=== PATIENT | male | born 1965 | race Caucasian/White ===

== ENCOUNTER 2019-03-22 12:07 | Inpatient (IN) | payer OTHER ==
[2019-03-22 15:14] VITALS: BMI 20.9
--- NOTE | 2019-03-22 16:58 | HP ---
"COWS - Scale Resting Pulse: 0= [place] 80 or Below Sweatin=Flushed/Facial Moisture Restless Observation: 3= Extraneous Movement Pupil Size: 1= Pupils >than Normal (Pupils = 3 mm) Bone or Joint Aches: 1= Mild Discomfort Runny Nose/ Eye Tearin= Runny Nose/Eyes GI Upset > 30mins: 0= None Tremor Observation: 2= Slight Tremor Visible Yawning Observation: 0= None Anxiety or Irritability: 1=Feels Anxious/Irritable Goose Flesh Skin: 0=Smooth Skin COWS Score: 12 CIWA Score - Admission Criteria OASAS Guidelines: Admission for Medically Managed Detox: Requires at least one of the followin. CIWA greater than 12 2. Seizures within the past 24 hours 3. Delirium tremens within the past 24 hours 4. Hallucinations within the past 24 hours 5. Acute intervention needed for co occurring medical disorder 6. Acute intervention needed for co occurring psychiatric disorder 7. Severe withdrawal that cannot be handled at a lower level of care (continued vomiting, continued diarrhea, abnormal vital signs) requiring intravenous medication and/or fluids 8. Admission [facility] Chief Complaint: I'm having heroin withdrawal. I need detox. Allergies/Adverse Reactions: Allergies Allergy/AdvReac Type Severity Reaction Status Date / Time No Known Allergies Allergy Verified 03/22/19 15:06 History of Present Illness: 53 yo presents w/opioid withdrawal seeking detox. Has had multiple detoxes in other facilities - never completed. Heroin use began at age 35. Currently increased to 15 bags x 5 months - [place]. States last used at 9 am. Does not have a Narcan kit. States methadone is from treatment attempt @ [facility] on 03/21/19. Denies being on a MMTP. Nicotine use began at age 10. Smokes 1/2 PPD. Denies alcohol or beer use. Denies seizures, blackouts or overdoses. Longest length of sobriety 1 year - 2018. PMHx: Asthma (Last exacerbation over 1 year ago); Occ streaks of blood; Gastric Ulcer: Kidney infection 1 month ago. MHHx: Aniety; Bipolar: Depression. Not on MH meds. Does not see a MH Provider. Denies thoughts of harming self or others. SHx: Lives in a detention. Unemployed. Search Terms: Rogelio Calloway, 1965 Search Date: 03/22/2019 04:52:58 PM The Drug Utilization Report below displays all of the controlled substance prescriptions, if any, that your patient has filled in the last twelve months. The information displayed on this report is compiled from pharmacy submissions to the Department, and accurately reflects the information as submitted by the pharmacies. This report was requested by: Lauren Garcia | Reference #: [id number] There are no results for the search terms that you entered. Search Terms: Rogelio Calloway, 1965 Search Date: 03/22/2019 04:53:22 PM States Searched: [place], [place], [place], [place], [place], [place], [place] The Drug Utilization Report below displays the controlled substance prescriptions, if any, that were dispensed in the indicated state(s). The information displayed on this report is compiled from requests submitted to other states' PMPs, and accurately reflects the information as returned by them. Blank padilla indicate data not provided by other state. This report was requested by: Laurne Garcia | Reference #: [id number] Exam Limitations: No Limitations - Ebola screening Have you traveled outside of the country in the last 21 days: No (N) Have you had contact with anyone from an Ebola affected area: No Have you been sick,other than usual withdrawal symptoms: No (Denies recent exposure to measles) Do you have a fever: No - Review of Systems Constitutional: No Symptoms Reported EENT: reports: Blurred Vision, Dental Problems (Dentures. Missing fillings. Chews and swallows ok.) Respiratory: reports: SOB with Exertion Cardiac: reports: No Symptoms Reported GI: reports: Blood Streaked Bowels, Nausea : reports: No Symptoms Reported Musculoskeletal: reports: Back Pain (LBP r/t withdrawal), Joint Pain ((R) hip gives out - uses a cane) Integumentary: reports: Other (Occ boils under armpits) Neuro: reports: Numbness (Toes both feet.) Endocrine: reports: No Symptoms Reported Hematology: reports: No Symptoms Reported Psychiatric: reports: Judgement Intact, Orientated x3, Agitated, Anxious, Depressed (Denies thoughts of harming self or others) Patient History - PPD History Previous Implant?: Yes (Will order TB Gold test) Documented Results: Negative w/o proof Implanted On Prior [facility] Admission?: Yes PPD to be Administered?: No - Smoking Cessation Smoking history: Current every day smoker Have you smoked in the past 12 months: Yes Aproximately how many cigarettes per day: 10 Hx Chewing Tobacco Use: No Initiated information on smoking cessation: Yes 'Breaking Loose' booklet given: 03/22/19 - Substance & Tx. History Hx Alcohol Use: No Hx Substance Use: Yes Substance Use Type: Heroin, Opiates Hx Substance Use Treatment: Yes (multiple detoxes - never completed.) - Substances abused Heroin Substance route: Inhalation Frequency: Daily Amount used: 15 bags Age of first use: 35 Date of last use: 03/22/19 Admission Physical Exam S - Vital Signs Vital Signs: Vital Signs - 24 hr 03/22/19 15:06 Temperature 97.7 F Pulse Rate 65 Respiratory 16 Rate Blood Pressure 115/78 - Physical General Appearance: Yes: Mild Distress, Thin, Tremorous, Sweating (Increased facial moisture), Anxious HEENTM: Yes: Hearing grossly Normal, Normocephalic, Normal Voice, RICCO (Pupils = 3 mm), Pharynx Normal Respiratory: Yes: Lungs Clear, Normal Breath Sounds, No Respiratory Distress Breast: Yes: Breast Exam Deferred Cardiology: Yes: Regular Rhythm, S1, S2, Bradycardia (HR: 58) Abdominal: Yes: Non Tender, Flat, Soft, Increased Bowel Sounds Genitourinary: Yes: Within Normal Limits Back: Yes: Normal Inspection Musculoskeletal: Yes: full range of Motion, Gait Steady Extremities: Yes: Normal Capillary Refill, Non-Tender, Tremors Neurological: Yes: Fully Oriented, Alert, Motor Strength 5/5, Normal Response Integumentary: Yes: Normal Color, Warm, Diaphoresis (Increased facial moisture) , Other (dry, flaky skin between toes and on bottom of feet.) Lymphatic: Yes: Within Normal Limits - Diagnostic (1) Opioid dependence with withdrawal Current Visit: Yes Status: Acute (2) Nicotine dependence, uncomplicated Current Visit: Yes Status: Chronic Qualifiers: Nicotine product type: cigarettes Qualified Code(s): F17.210 - Nicotine dependence, cigarettes, uncomplicated (3) History of gastric ulcer Current Visit: No Status: Resolved (4) History of asthma Current Visit: No Status: Chronic (5) Left hip pain Current Visit: Yes Status: Chronic (6) Tinea pedis Current Visit: Yes Status: Chronic Qualifiers: Laterality: bilateral Qualified Code(s): B35.3 - Tinea pedis Cleared for Admission [facility] - Detox or Rehab [facility] Level of Care: Medically Managed Detox Regimen/Protocol: Methadone Claeared for Rehab Admission: No Breathalyzer - Breathalyzer Breathalyzer: 0 Urine Drug Screen - Test Device Lot number: [id number] Expiration date: 01/04/21 - Control Is test valid?: Yes - Results Drug screen NEGATIVE: No Urine drug screen results: FEN-Fentanyl, MOP-Opiates, MTD-Methadone Inpatient Rehab Admission - Rehab Decision to Admit Inpatient rehab admission?: No"
[2019-03-22] MEDS ORDERED: NICOTINE POLACRILEX 2 MG GUM BUC PRN (18:11)
[2019-03-22] MEDS ORDERED: ONDANSETRON *ODT* 4 MG TABLET SL PRN (18:11)
[2019-03-22] MEDS ORDERED: MENTHOL/PHENOL 1 EACH UD MM PRN (18:11)
[2019-03-22] MEDS ORDERED: IBUPROFEN 400 MG TABLET (FP) PO PRN (18:11)
[2019-03-22] MEDS ORDERED: MAGNESIUM CITRATE 300 ML BOTTLE PO PRN (18:11)
[2019-03-22] MEDS ORDERED: BISMUTH SUBSALICYLATE 524 MG/30 ML UD PO PRN (18:11)
[2019-03-22] MEDS ORDERED: METHOCARBAMOL 500 MG TABLET PO PRN (18:11)
[2019-03-22] MEDS ORDERED: ACETAMINOPHEN 325 MG TABLET (FP) PO PRN ×2 (18:11)
[2019-03-22] MEDS ORDERED: MAGNESIUM HYDROX 2400MG/30ML ORAL SUSPENSION 30 ML CUP PO PRN (18:11)
[2019-03-22] MEDS ORDERED: MAG HYDROX/AL HYDROX/SIMETH 30 ML UNIT-DOSE CUP PO PRN (18:11)
[2019-03-22] MEDS ORDERED: ALBUTEROL SO4 0.083% IH SOL 2.5 MG/3 ML VIAL.NEB. NEB PRN (18:19)
[2019-03-22] MEDS ORDERED: NALOXONE HCL 0.4 MG/ML VIAL IM PRN (18:33)
[2019-03-22] MEDS: TOLNAFTATE 1% CREAM 15 GM TUBE TP SCH (21:49)
[2019-03-22] MEDS: THIAMINE HCL 100 MG TABLET (FP) PO SCH (21:49)
[2019-03-22] MEDS: MELATONIN 5 MG TABLETS PO PRN (21:49)
[2019-03-22] MEDS ORDERED: METHADONE HCL 10 MG TABLET (FOR DETOX USE ONLY) PO ONE (22:00)
[2019-03-23] MEDS ORDERED: METHADONE HCL 10 MG TABLET (FOR DETOX USE ONLY) ONE (09:14)
[2019-03-23] MEDS ORDERED: METHADONE HCL 5 MG TABLET (FOR DETOX USE ONLY) ONE (09:14)
[2019-03-23] MEDS ORDERED: METHADONE (DETOX) 20 MG, METHADONE (DETOX) 5 MG PO ONE (10:00)
[2019-03-23] MEDS: NICOTINE 14 MG/24 HOURS TOPICAL PATCH TD SCH (10:12)
[2019-03-23] MEDS: RANITIDINE HCL 150 MG TABLET (FP) PO SCH (10:12)
[2019-03-23] MEDS: PRENATAL VITAMINS W/ FOLIC ACID TABLET (FP) PO SCH (10:12)
[2019-03-23] MEDS: TOLNAFTATE 1% CREAM 15 GM TUBE TP SCH ×2 (10:14→21:42)
[2019-03-23 10:48] LABS: HEMATOCRIT 39.7 % (35.4-49); HEMOGLOBIN 13.5 GM/dL (11.7-16.9); MCH 32.7 pg (25.7-33.7); MEAN CELL VOLUME 96.3 fl (80-96); MEAN PLT VOLUME 7.4 fl (7.5-11.1); PLATELET COUNT 297 K/MM3 (134-434); RBC 4.13 M/mm3 (4.00-5.60); RDW 13.8 % (11.9-15.9); WHITE BLOOD COUNT 8.4 K/mm3 (4.0-10.0)
--- NOTE | 2019-03-23 11:06 | PN ---
[facility] COWS - Scale Resting Pulse: 0= [place] 80 or Below Sweatin= Beads of Sweat on Face Restless Observation: 1= Difficult to Sit Still Pupil Size: 0= Normal to Room Light Bone or Joint Aches: 2= Severe Diffuse Aches Runny Nose/ Eye Tearin= None GI Upset > 30mins: 1= Stomach Cramp Tremor Observation of Outstretched Hands: 0= None Yawning Observation: 1= 1-2x During Session Anxiety or Irritability: 2=Irritable/Anxious Goose Flesh Skin: 0=Smooth Skin COWS Score: 10 BHS Progress Note (SOAP) Subjective: c/o sweats, anxiety/irritability, and stomach cramps. Objective: 03/23/19 11:07 Vital Signs 03/23/19 03/23/19 03:30 06:45 Temperature 97.9 F Pulse Rate 60 Respiratory 18 18 Rate Blood Pressure 130/62 Lab Results WBC 8.4 K/mm3 (4.0-10.0) 03/23/19 07:30 RBC 4.13 M/mm3 (4.00-5.60) 03/23/19 07:30 Hgb 13.5 GM/dL (11.7-16.9) 03/23/19 07:30 Hct 39.7 % (35.4-49) 03/23/19 07:30 MCV 96.3 fl (80-96) H 03/23/19 07:30 MCHC 34.0 g/dl (32.0-35.9) 03/23/19 07:30 RDW 13.8 % (11.9-15.9) 03/23/19 07:30 Plt Count 297 K/MM3 (134-434) 03/23/19 07:30 Labs pending. Assessment: 03/23/19 11:08 AOX3, in no acute distress. Full ROM, ambulating in the unit. Withdrawal symptoms. Plan: continue detox.
[2019-03-23 11:12] LABS: BILIRUBIN,TOTAL 0.5 mg/dL (0.2-1); BLOOD UREA NITROGEN 11.4 mg/dL (7-18); CALCIUM 9.2 mg/dL (8.5-10.1); CREATININE 0.7 mg/dL (0.55-1.3); TOT PROT 7.3 g/dl (6.4-8.2)
[2019-03-23] MEDS: PANTOPRAZOLE 40 MG TABLET (FP) PO SCH (19:48)
[2019-03-23] MEDS: MELATONIN 5 MG TABLETS PO PRN (21:42)
[2019-03-23] MEDS: THIAMINE HCL 100 MG TABLET (FP) PO SCH (21:42)
--- NOTE | 2019-03-24 08:12 | PN ---
[facility] Progress Note Note: Patient made verbal threats to staff. Patient was at the nursing station telling another resident to call 911 if the nurse did not alow her to use the telephone to call her house in the morning. Patient was told to go to his room and not stand at the nursing station Patient stated " Don't mess with me, else what happened yesteryears will happen right now''. Paient was unable to explain what he meant. Nursing instructional supervisor, Mr. Garcia and security aware
[2019-03-24] MEDS ORDERED: METHADONE HCL 10 MG TABLET (FOR DETOX USE ONLY) PO ONE (10:00)
[2019-03-24] MEDS: NICOTINE 14 MG/24 HOURS TOPICAL PATCH TD SCH (10:15)
[2019-03-24] MEDS: RANITIDINE HCL 150 MG TABLET (FP) PO SCH (10:16)
[2019-03-24] MEDS: TOLNAFTATE 1% CREAM 15 GM TUBE TP SCH ×2 (10:16→22:09)
[2019-03-24] MEDS: PRENATAL VITAMINS W/ FOLIC ACID TABLET (FP) PO SCH (10:16)
[2019-03-24] MEDS ORDERED: cloNIDine HCL 0.1 MG TABLET PO PRN (11:11)
[2019-03-24] MEDS: diazePAM 5 MG TABLET PO PRN ×3 (11:20→19:49)
--- NOTE | 2019-03-24 11:39 | EKG ---
Test Reason : Blood Pressure : / mmHG Vent. Rate : 046 BPM Atrial Rate : 046 BPM P-R Int : 152 ms QRS Dur : 088 ms QT Int : 466 ms P-R-T Axes : 062 064 077 degrees QTc Int : 407 ms SINUS BRADYCARDIA OTHERWISE NORMAL ECG NO PREVIOUS ECGS AVAILABLE Confirmed by KAMILLE BALDERAS MD ([id number]) on 03/24/2019 11:39:11 AM Referred By: Confirmed By:KAMILLE BALDERAS MD
--- NOTE | 2019-03-24 12:29 | PN ---
[facility] COWS - Scale Resting Pulse: 0= [place] 80 or Below Sweatin=Flushed/Facial Moisture Restless Observation: 1= Difficult to Sit Still Pupil Size: 0= Normal to Room Light Bone or Joint Aches: 2= Severe Diffuse Aches Runny Nose/ Eye Tearin= None GI Upset > 30mins: 0= None Tremor Observation of Outstretched Hands: 2= Slight Tremor Visible Yawning Observation: 1= 1-2x During Session Anxiety or Irritability: 2=Irritable/Anxious Goose Flesh Skin: 0=Smooth Skin COWS Score: 10 B[facility] Progress Note (SOAP) Subjective: irritable anxiety body aches agitation Objective: 03/24/19 12:28 Vital Signs Temperature 98.2 F 03/24/19 09:48 Pulse Rate 69 03/24/19 09:48 Respiratory Rate 18 03/24/19 09:48 Blood Pressure 146/75 03/24/19 09:48 O2 Sat by Pulse Oximetry (%) Laboratory Tests 03/23/19 03/23/19 03/23/19 07:30 07:30 07:30 WBC 8.4 RBC 4.13 Hgb 13.5 Hct 39.7 MCV 96.3 H MCH 32.7 MCHC 34.0 RDW 13.8 Plt Count 297 MPV 7.4 L Sodium 140 Potassium 4.0 Chloride 103 Carbon Dioxide 31 Anion Gap 6 L BUN 11.4 Creatinine 0.7 Est GFR (CKD-EPI)AfAm 124.87 Est GFR (CKD-EPI)NonAf 107.74 Random Glucose 83 Calcium 9.2 Total Bilirubin 0.5 AST 20 ALT 18 Alkaline Phosphatase 60 Total Protein 7.3 Albumin 4.0 RPR Titer Nonreactive labs noted aaox3 ambulating no acute distress Assessment: 03/24/19 12:28 withdrawal sx Plan: continue detox increase fluids valium 10mg prn clonidine 0.1mg prn
[2019-03-24] MEDS: PANTOPRAZOLE 40 MG TABLET (FP) PO SCH (18:15)
[2019-03-24] MEDS: THIAMINE HCL 100 MG TABLET (FP) PO SCH (22:08)
[2019-03-24] MEDS: MELATONIN 5 MG TABLETS PO PRN (22:09)
[2019-03-25] MEDS: diazePAM 5 MG TABLET PO PRN ×3 (07:14→16:15)
[2019-03-25] MEDS ORDERED: METHADONE HCL 10 MG TABLET (FOR DETOX USE ONLY) ONE (09:41)
[2019-03-25] MEDS ORDERED: METHADONE HCL 5 MG TABLET (FOR DETOX USE ONLY) ONE (09:42)
[2019-03-25] MEDS ORDERED: METHADONE (DETOX) 10 MG, METHADONE (DETOX) 5 MG PO ONE (10:00)
[2019-03-25] MEDS: PRENATAL VITAMINS W/ FOLIC ACID TABLET (FP) PO SCH (10:56)
[2019-03-25] MEDS: TOLNAFTATE 1% CREAM 15 GM TUBE TP SCH ×2 (10:56→22:25)
[2019-03-25] MEDS: RANITIDINE HCL 150 MG TABLET (FP) PO SCH (10:56)
[2019-03-25] MEDS: NICOTINE 14 MG/24 HOURS TOPICAL PATCH TD SCH (10:58)
--- NOTE | 2019-03-25 16:25 | PN ---
[facility] COWS - Scale Resting Pulse: 0= [place] 80 or Below Sweatin= No chills or Flushing Restless Observation: 1= Difficult to Sit Still Pupil Size: 0= Normal to Room Light Bone or Joint Aches: 0= None Runny Nose/ Eye Tearin= None GI Upset > 30mins: 0= None Tremor Observation of Outstretched Hands: 0= None Yawning Observation: 1= 1-2x During Session Anxiety or Irritability: 0= None Goose Flesh Skin: 0=Smooth Skin COWS Score: 2 BHS Progress Note (SOAP) Subjective: Patient denies current Withdrawal / Detox symptoms and reports that he feels well overall at this time. Objective: PATIENT A & O X 3, OBSERVED AMBULATING ON UNIT WITH ASSISTANCE OF A CANE. IN NO ACUTE DISTRESS. 03/25/19 17:06 Vital Signs Temperature 97.2 F L 03/25/19 13:25 Pulse Rate 65 03/25/19 13:25 Respiratory Rate 18 03/25/19 13:25 Blood Pressure 117/76 03/25/19 13:25 O2 Sat by Pulse Oximetry (%) Laboratory Tests 03/23/19 03/23/19 03/23/19 07:30 07:30 07:30 WBC 8.4 RBC 4.13 Hgb 13.5 Hct 39.7 MCV 96.3 H MCH 32.7 MCHC 34.0 RDW 13.8 Plt Count 297 MPV 7.4 L Sodium 140 Potassium 4.0 Chloride 103 Carbon Dioxide 31 Anion Gap 6 L BUN 11.4 Creatinine 0.7 Est GFR (CKD-EPI)AfAm 124.87 Est GFR (CKD-EPI)NonAf 107.74 Random Glucose 83 Calcium 9.2 Total Bilirubin 0.5 AST 20 ALT 18 Alkaline Phosphatase 60 Total Protein 7.3 Albumin 4.0 RPR Titer Nonreactive LABS NOTED. RESULTS OF DETOX ADMISSION QFT /TB TEST PENDING. 03/25/19 17:07 Assessment: 03/25/19 17:07 WITHDRAWAL SYMPTOMS. Plan: CONTINUE DETOX. PATIENT DENIES CURRENT WITHDRAWAL/DETOX SYMPTOMS AND REPORTS THAT HE FEELS WELL. AT PATIENT'S REQUEST, CURRENT DETOX MEDICATION REGIMEN MODIFIED SO THAT PATIENT MAY BE DISCHARGED TOMORROW, .
[2019-03-25] MEDS: PANTOPRAZOLE 40 MG TABLET (FP) PO SCH (18:41)
[2019-03-25] MEDS: THIAMINE HCL 100 MG TABLET (FP) PO SCH (22:24)
[2019-03-25] MEDS: MELATONIN 5 MG TABLETS PO PRN (22:24)
[2019-03-26] MEDS ORDERED: METHADONE HCL 5 MG TABLET (FOR DETOX USE ONLY) PO ONE (06:00)
[2019-03-26] MEDS: diazePAM 5 MG TABLET PO PRN (06:00)
[2019-03-26 06:29] VITALS: BP 104/68; PULSE 96; TEMP 97.7
[2019-03-26] MEDS: PRENATAL VITAMINS W/ FOLIC ACID TABLET (FP) PO SCH (09:08)
[2019-03-26] MEDS: RANITIDINE HCL 150 MG TABLET (FP) PO SCH (09:08)
--- NOTE | 2019-03-26 09:09 | DS ---
[facility] Detox Discharge Summary Admission Date: 03/22/19 Discharge Date: 03/26/19 - History Present History: Opioid Dependence - Physical Exam Results Vital Signs: Vital Signs Temperature 97.7 F 03/26/19 06:00 Pulse Rate 96 H 03/26/19 06:00 Respiratory Rate 16 03/26/19 06:00 Blood Pressure 104/68 03/26/19 06:00 O2 Sat by Pulse Oximetry (%) Pertinent Admission Physical Exam Findings: pt arrived in withdrawals Laboratory Tests 03/23/19 03/23/19 03/23/19 07:30 07:30 07:30 WBC 8.4 RBC 4.13 Hgb 13.5 Hct 39.7 MCV 96.3 H MCH 32.7 MCHC 34.0 RDW 13.8 Plt Count 297 MPV 7.4 L Sodium 140 Potassium 4.0 Chloride 103 Carbon Dioxide 31 Anion Gap 6 L BUN 11.4 Creatinine 0.7 Est GFR (CKD-EPI)AfAm 124.87 Est GFR (CKD-EPI)NonAf 107.74 Random Glucose 83 Calcium 9.2 Total Bilirubin 0.5 AST 20 ALT 18 Alkaline Phosphatase 60 Total Protein 7.3 Albumin 4.0 RPR Titer Nonreactive today pt is aaox3 ambulating no acute distress no s/s of withdrawals - Treatment Hospital Course: Detox Protocol Followed, Detoxed Safely, Responded well, Discharged Condition Good, Rehab Referral Accepted Patient has Accepted a Rehab Referral to: pt declined rehab; referral provided - Medication Discharge Medications: Ambulatory Orders Ranitidine HCl [Zantac] 150 mg PO DAILY 03/22/19 Albuterol Sulfate Inhaler - [Ventolin HFA Inhaler -] 1 inhaler PO PRN PRN #1 inhaler 03/25/19 - Diagnosis (1) Opioid dependence with withdrawal Current Visit: Yes Status: Chronic (2) Left hip pain Current Visit: Yes Status: Chronic (3) Nicotine dependence, uncomplicated Current Visit: Yes Status: Chronic Qualifiers: Nicotine product type: cigarettes Qualified Code(s): F17.210 - Nicotine dependence, cigarettes, uncomplicated (4) Tinea pedis Current Visit: Yes Status: Chronic Qualifiers: Laterality: bilateral Qualified Code(s): B35.3 - Tinea pedis (5) History of asthma Current Visit: No Status: Chronic (6) History of gastric ulcer Current Visit: No Status: Resolved - AMA Did Patient Leave Against Medical Advice: No
[2019-03-26] MEDS ORDERED: METHADONE HCL 10 MG TABLET (FOR DETOX USE ONLY) PO ONE (10:00)
[2019-03-27] MEDS ORDERED: METHADONE HCL 5 MG TABLET (FOR DETOX USE ONLY) PO ONE (06:00)
== END 2019-03-26 09:22 | disposition home or self-care (01) | DRG 773 ==
LOC: YASAS 12:07 → Y6N 18:40
PROVIDERS: ADMIT Surgery; ATTEND Surgery
PROC: HZ2ZZZZ Detoxification Services for Substance Abuse Treatment (ICD-10-PCS; principal; 2019-03-22)
DX: F11.23 Opioid dependence with withdrawal (principal); F17.210 Nicotine dependence, cigarettes, uncomplicated; B35.3 Tinea pedis; M25.552 Pain in left hip; J45.909 Unspecified asthma, uncomplicated; R00.1 Bradycardia, unspecified; Z87.11 Personal history of peptic ulcer disease
CPT/HCPCS: 36415; 80053; 85027; 86480; 86593; 93005; 93010